=== PATIENT | female | born 1965 | race Caucasian/White ===

== ENCOUNTER 2019-12-09 07:18 | Outpatient (CLI) | payer OTHER, SELFPAY ==
--- NOTE | 2019-12-09 07:39 | MM_ITS ---
WS: [id number] BILATERAL SCREENING DIGITAL MAMMOGRAM WITH CAD HISTORY: Screening exam. COMPARISON: 02/02/2018 and 01/03/2016 Bilateral CC and MLO views submitted. Computer aided detection analyzed. Breast composition: The breasts are heterogeneously dense, which may obscure small masses. No suspici ous masses, microcalcifications or architectural distortion. Asymmetries bilaterally and in stable ov er multiple years. MM/[place] [id number] IMPRESSION: BI-RADS: 2-Benign FOLLOW UP: 1 Year Follow-up
== END 2019-12-09 07:19 | disposition home or self-care (01) ==
LOC: RADSHAW 07:20
PROVIDERS: PCP Family Medicine; Visit Provider Family Medicine
DX: Z12.31 Encounter for screening mammogram for malignant neoplasm of breast (principal)
CPT/HCPCS: 77067

== ENCOUNTER → 2019-12-12 13:37 | Outpatient (BNVA) | payer OTHER, SELFPAY | PROVIDERS: PCP Family Medicine; Visit Provider Obstetrics & Gynecology | DX: N93.9 Abnormal uterine and vaginal bleeding, unspecified (principal) | CPT/HCPCS: 76830 ==

== ENCOUNTER → 2020-01-13 09:26 | Outpatient (BNVA) | payer OTHER, SELFPAY | PROVIDERS: PCP Family Medicine; Visit Provider Obstetrics & Gynecology | DX: Z11.59 Encounter for screening for other viral diseases (principal) | CPT/HCPCS: 87635 ==

== ENCOUNTER 2020-01-19 09:04 | Day surgery (SDC) | payer OTHER, SELFPAY ==
--- NOTE | 2020-01-16 09:08 | ANES.PREANE2 ---
Pre-Anesthetic Assessment Pre-Anesthetic Assessment: Height/Weight: Height 1.68 m Preop Diagnosis: abnormal uterine bleeding Proposed Procedure: Operation Date: 01/19/20 10:30 Proposed Procedures p Hysteroscopy 81842 N93.9(Not Applicable) - Nick Copeland MD s Dilation And Curettage (D&C) 55381 R93.89(Not Applicable) - Nick Copeland MD Familial anesthetic complications: Last time she couldn't breath through her mask when she was going to sleep, she states this was because the oxygen wasn't on, but she says she couldn't inhale or exhale and she couldn't move. Suspect she wasn't deep enough Was Beta Betty taken within 24 hours: N/A Social: Social History: No alcohol and No tobacco Exam: Pre-Anes Outpt Exam: alert, oriented x 3, clear to auscultation bilaterally and regular rate & rhythm Airway: Cervical ROM: WNL MP: 2 Dentition: Full Pulmonary: Pulmonary: Asthma CV/HEM: CV/HEM: HTN GI: GI: GERD Comments: IBS Metabolic: Metabolic: Morbid obesity Comments: Pre -DM Anesthetic Plan: ASA status: 2 Anesthesia: General Risk of > 500 ml blood loss (7ml/kg in children): No PFSH Anesthesia PFSH: Medical History Asthma States that she is well controlled on albuterol as needed and denies any intubations or hospitalizations. She is managed by Dr. Nur in [place] Hypertension Reports being diagnosed with hypertension in 2013 and is currently on medication management by her PCP Dr. Aponte. She states that symptoms are well-controlled Irritable bowel syndrome She states that she has symptoms consistent with irritable bowel syndrome and is being managed by chlordiazepoxide-clidinium which helps with her symptoms as well as Metamucil and probiotics. This is being managed by primary care provider Dr. Brooke No pertinent past medical history Denies: Diabetes, seizures, DVT/PE PCP: Dr. Aponte Surgical History S/P cholecystectomy 2005, laparoscopic procedure S/P laparotomy 1992---midline infraumbilical incision. She was told that there was no cancer and then it was a benign cyst Status post surgery Anal fissure repair in 2013 Family History Sister Breast cancer diagnosed at age 48; was tested for genetic breast cancer diseases and was negative Mother Diabetes Hypertension Thyroid condition Hyperlipidemia Father Diabetes Heart disease Hypertension Grandmother Heart disease maternal Denies family history of Colon cancer Ovarian cancer DVT (deep venous thrombosis) Pulmonary embolism Uterine cancer Stroke Data Anesthesia Cardiac Studies: No Data to Display
[2020-01-16 10:49] VITALS: BMI 41.9
[2020-01-19] VITALS (7 sets, daily range): BP systolic 120–167; BP diastolic 71–92; PULSE 71–104; RESP 17–22; TEMP 36.2–37.3; O2SAT 90–97
[2020-01-19 09:28] LABS: OR HCG Qualitative Urine Negative (Negative)
[2020-01-19] MEDS: sodium chloride 0.9% 1,000 ML 30 ML IV (09:42)
[2020-01-19 09:54] LABS: Basophils % 0.5 %; Eosinophils # 0.1 10^3/uL (0.0-0.8); Eosinophils % 2.2 %; Hematocrit 45.3 % (37.0-47.0); Hemoglobin 15.2 g/dL (11.5-15.3); Lymphocytes % 30.5 %; Mean Corpuscular HGB Conc 33.6 g/dL (30.0-36.0); Mean Corpuscular Hemoglobin 30.5 pg (28.0-34.0); Mean Corpuscular Volume 90.8 fL (81-99); Mean Platelet Volume 9.9 fL (7.4-10.4); Monocytes # 0.4 10^3/uL (0.2-0.9); Monocytes % 6.7 %; Neutrophils # 3.87 10^3/uL (1.8-7.7); Neutrophils % 59.8 %; Nucleated Red Blood Cells % 0 %; Platelet Count 288 10^3/cmm (130-400); Red Blood Count 4.99 10^6/uL (4.1-5.3); Red Cell Distribution Width 11.5 % (12.1-15.1); White Blood Count 6.5 10^3/uL (4.0-10.0)
--- NOTE | 2020-01-19 10:44 | P.HPUD_ITS ---
Surgery/Procedure H&P Update DATE OF PROCEDURE: January 19, 2020 DATE H&P PERFORMED: 12/19/19 H&P UPDATE INFORMATION: I have reviewed H&P completed within last 30 days, I have examined patient prior to procedure, No changes to prior documentation and H&P is in [facility] EMR on date indicated PREOP DIAGNOSIS: Thickened endometrium-possible endometrial polyp PLANNED PROCEDURE: Operation Date: 01/19/20 10:30 Proposed Procedures p Hysteroscopy 43699 N93.9(Not Applicable) - Nick Copeland MD s Dilation And Curettage (D&C) 47396 R93.89 w/poss Myosure(Not Applicable) - Nick Copeland MD
--- NOTE | 2020-01-19 10:44 | W.PM.OPSUD ---
Surgery/Procedure H&P Update DATE OF PROCEDURE: January 19, 2020 DATE H&P PERFORMED: 12/19/19 H&P UPDATE INFORMATION: I have reviewed H&P completed within last 30 days, I have examined patient prior to procedure, No changes to prior documentation and H&P is in [facility] EMR on date indicated PREOP DIAGNOSIS: Thickened endometrium-possible endometrial polyp PLANNED PROCEDURE: Operation Date: 01/19/20 10:30 Proposed Procedures p Hysteroscopy 27802 N93.9(Not Applicable) - Nick Copeland MD s Dilation And Curettage (D&C) 88162 R93.89 w/poss Myosure(Not Applicable) - Nick Copeland MD
[2020-01-19] MEDS: silver nitrate applicator 2 EACH TOPICAL (12:23)
--- NOTE | 2020-01-19 12:31 | PM.OP ---
Operative Report Date of procedure: January 19, 2020 OPERATIVE REPORT Date of surgery: 01/19/2020 Date of dictation: 01/19/2020 Preoperative diagnosis: Thickened endometrium, abnormal uterine bleeding Postoperative diagnosis/findings: Same, 6 to 8 weeks size mid to retroverted uterus, minimal to no prolapse on exam. On hysteroscopy endocervical canal appeared normal, endometrial cavity had diffuse projectile growths some papillary in appearance. Procedure done: Hysteroscopy, polypectomy, D&C Specimens removed/disposition of specimens: Endometrial curettings sent to pathology Surgeon: Dr. Nick Hayes bacteriology research assistant: Tita Anesthesia: General endotracheal tube anesthesia Estimated blood loss: Less than 25 ml Intravenous fluids: 500 mL Urine output: 50 mL of clear urine at the end of procedure Medications: As per anesthesia records Complications: None, patient was taken to the recovery room in a stable condition. PROCEDURE: After consent was obtained patient was taken to the operating room where she is placed under laryngeal mask anesthesia without any difficulty. She was placed supine on the table in lithotomy position. Care was taken to ensure that her legs were well positioned to avoid pressure points. She was then prepped and draped in the usual sterile fashion. Exam under anesthesia was done at this time which showed a 6 to 8-week size retroverted uterus, very minimal prolapse with tenaculum. The weighted speculum and lateral vaginal wall retractors were placed in the vagina and the cervix was visualized. The cervix appeared normal and nulliparous. The cervix was dilated to a 15 Diamond dilator. This allowed placement of the Myosure hysteroscope after it was primed. Good visualization was unable to be obtained with this despite changes in the pressure setting and as a result this was removed and another operative 0 degree hysteroscope was placed. Once the hysteroscope was placed in the uterine cavity, the endocervical canal was visualized and appeared normal .the uterine cavity was visualized and diffuse thickened endometrium with a few areas of papillary growths were identified the thought to be polyp however without a smooth surface.the hysteroscope was withdrawn and sharp curetting was performed and copious amount of tissues were obtained which was sent to pathology as endometrial curettings. The hysteroscope was placed in an most of 3 tissue had been obtained. Using the hysteroscopic grasper some residual tissue was grasped and removed and sent in addition to the other endometrial tissue. The hysteroscope was withdrawn. No active bleeding was noted from the cervix. Tenaculum was removed and hemostasis was achieved at tenaculum site with silver nitrate. Good hemostasis was achieved. All instruments were removed from the vagina. Patient was cleaned well and anesthesia was reversed without any difficulty. She was taken to the recovery in a stable condition. FOLLOW UP: Follow-up in 2 weeks and 6 weeks with surgeon MEDICATION ON DISCHARGE: Colace 100 mg by mouth every 12 hours when necessary constipation, 30 tablets, no refills Ibuprofen 800 mg by mouth every 8 hours when necessary pain, 60 tablets, no refills. Continue other home medication DISPOSITION: Home in a stable condition Pre-op Diagnosis: Thickened endometrium-possible endometrial polyp
--- NOTE | 2020-01-19 12:45 | SUR.PHASEI ---
PT AWAKE ALERT WANTS TO GET UP TO BATHROOM, VSS ABD SOFT PT ON RA TRIAL, PT DOZES IF NOT DISTURBED
[2020-01-19] MEDS: ibuprofen 800 mg tablet PO (13:21)
--- NOTE | 2020-01-19 13:33 | ANE.PACU2 ---
Inpatient post-anesthesia follow up: Airway intact: Yes Vital signs: Temperature 97.8 F Pulse Rate 77 Respiratory Rate 18 Blood Pressure 140/85 Pulse Oximetry 97 Oxygen Delivery Me thod Room Air Oxygen Flow Rate 8 Fraction of Inspir ed Oxygen Hydration adequate: Yes Nausea and vomiting: No Pain level: 2 Mental status: Baseline
== END 2020-01-19 14:16 | disposition home or self-care (01) ==
PROVIDERS: PCP Family Medicine; Visit Provider Obstetrics & Gynecology
PROC: 0UJD8ZZ Inspection of Uterus and Cervix, Via Natural or Artificial Opening Endoscopic (ICD-10-PCS; CPT 58555; principal; 2020-01-19 10:30)
PROC: (CPT 58120; 2020-01-19 10:30)
DX: R93.89 Abnormal findings on diagnostic imaging of other specified body structures (principal); N93.9 Abnormal uterine and vaginal bleeding, unspecified; I10 Essential (primary) hypertension; J45.909 Unspecified asthma, uncomplicated; E66.01 Morbid (severe) obesity due to excess calories; Z68.41 Body mass index [BMI] 40.0-44.9, adult
CPT/HCPCS: 58558; 12345; 36415; 81025; 84703; 85025; 88305; J2250; J2405; J2704; J3010; J7030

== ENCOUNTER 2020-03-01 11:08 | Outpatient (CLI) | payer OTHER, SELFPAY ==
[2020-03-01] MEDS: iohexol 300 mg/mL 50 mL Btl PO (12:53)
--- NOTE | 2020-03-01 13:00 | CT_ITS ---
WS: [id number] CT scan of the chest With IV contrast, CT scan of the abdomen and pelvis with IV contrast and with oral contrast. Additional two-dimensional coronal and sagittal reconstruction was performed. 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 DLP: 2547.[address] scans at [facility] use at least one of these dose optimization techniques: automat ed exposure control; mA and/or kV adjustment per patient size (includes targeted exams where dose is matched to clinical indication); or iterative reconstruction. Findings: Chest: No nodules, masses or effusions are seen. There is a calcified granuloma in the medial aspect of the posterior portion of the right lower lobe. The heart size is normal with no pericardial effusion. No pneumonia or pneumothorax is seen. No metas tatic lesions are noted. The pulmonary arterial system and thoracic aorta demonstrate no abnormalities or dilatations. There is no axillary or significant mediastinal adenopathy. The bony thorax shows no metastatic lesio ns. There is minimal osteoarthritic spurring of the thoracic vertebral bodies. Abdomen/pelvis: The liver, spleen, adrenal glands and pancreas are normal. There are clips in the gallbladder fossa from a cholecystectomy. The kidneys show equal bilateral contrast excretion with a 3.0 cm cyst of the right kidney. No hydron ephrosis or renal calculi are seen.. The abdominal aorta is normal in size. No appendicitis or diverticulitis is seen. Oral contrast is in the stomach and small bowel and there is no bowel dilatation. No abscess, adenopathy, ascites, mass, obstruction or free air is seen. The bladder is unremarkable. The uterus is unremarkable. No inguinal hernia is seen. The bones of the lower thorax, lumbar spine, pelvis, and hips show only minimal narrowing at the L5-S 1 disc level. No bony metastatic lesions are seen. CT/CT chest abd pel w con* Impression: 1. Negative for acute cardiopulmonary disease. 2. Negative for acute intra-abdominal or pelvic abnormalities.
[2020-03-01] MEDS: iohexol 300 mg/mL 100 mL Btl IV (13:14)
== END 2020-03-01 11:09 | disposition home or self-care (01) ==
LOC: RADWPI 11:13
PROVIDERS: PCP Family Medicine; Visit Provider Obstetrics & Gynecology
DX: N85.02 Endometrial intraepithelial neoplasia [EIN] (principal)
CPT/HCPCS: 71260; 74177; Q9967

== ENCOUNTER 2020-03-01 14:07 | Outpatient (CLI) | payer OTHER, SELFPAY | END 2020-03-01 14:08 | disposition home or self-care (01) | LOC: LAB 14:12 | PROVIDERS: PCP Family Medicine; Visit Provider Obstetrics & Gynecology | DX: N85.02 Endometrial intraepithelial neoplasia [EIN] (principal) | CPT/HCPCS: 36415; 86304 ==

== ENCOUNTER 2021-01-18 07:38 | Outpatient (CLI) | payer OTHER, SELFPAY ==
--- NOTE | 2021-01-18 07:42 | MM_ITS ---
WS: [id number] Bilateral screening digital mammogram, 01/18/2021 Clinical Data: SCREENING Comparison: 12/09/2019, 02/02/2018, 01/03/2016, 11/10/2013, 02/25/2012, 08/29/2011, 08/01/2011, 09/08/2008 . Findings: The breast parenchymal pattern shows heterogeneous density No spiculated masses or clustered calcific ations are seen. There are no secondary signs of carcinoma. There are a large number of moles on both breasts. There are small lymph nodes in both axilla. MM/[place] [id number] Impression: 1. Negative bilateral mammogram unchanged. 2. Recommend annual screening mammograms. BIRADS: 1-Negative FOLLOW UP: 1 Year Follow-up The CAD field checker was used.
== END 2021-01-18 07:39 | disposition home or self-care (01) ==
LOC: RADSHAW 07:41
PROVIDERS: PCP Family Medicine; Visit Provider Family Medicine
DX: Z12.31 Encounter for screening mammogram for malignant neoplasm of breast (principal)
CPT/HCPCS: 77067

== ENCOUNTER 2022-01-27 07:14 | Outpatient (CLI) | payer OTHER, SELFPAY ==
--- NOTE | 2022-01-27 07:23 | MM_ITS ---
WS: [id number] VIEWS: MLO and CC views both breasts. 3D digital tomosynthesis is also included in this exam. Comparison made with prior exam of 11/10/2013, 01/03/2016, 02/02/2018, 12/09/2019, 01/18/2021.. Findings: Stable appearing nodular densities in both breasts. Heterogeneously dense MM/[place] [id number] Impression: BI-RADS: 2-Benign FOLLOW-UP: 1 Year Follow-up This mammogram was also analyzed by the Computer Aided Detection System R2 Imag [employer] Training [employer] Development Specialist.
== END 2022-01-27 07:15 | disposition home or self-care (01) ==
LOC: RAD 07:15
PROVIDERS: PCP Family Medicine; Visit Provider Family Medicine
DX: Z12.31 Encounter for screening mammogram for malignant neoplasm of breast (principal)
CPT/HCPCS: 77063; 77067

== ENCOUNTER 2023-01-30 07:30 | Outpatient (CLI) | payer OTHER, SELFPAY ==
--- NOTE | 2023-01-30 07:49 | MM_ITS ---
WS: [id number] SCREENING DIGITAL TOMOSYNTHESIS MAMMOGRAM WITH CAD HISTORY: SCREEN COMPARISON: 01/27/2022 and 01/18/2021 Bilateral CC and MLO with tomosynthesis views submitted. Synthetic mammography reviewed. Computer aid ed detection analyzed. Breast composition: The breasts are heterogeneously dense, which may obscure small masses. No suspici ous masses, microcalcifications or architectural distortion. Benign calcifications in each breast. IMPRESSION: MM/[place] [id number] BI-RADS: 2-Benign FOLLOW UP: 1 Year Follow-up
== END 2023-01-30 07:31 | disposition home or self-care (01) ==
LOC: RAD 07:30
PROVIDERS: PCP Family Medicine; Visit Provider Family Medicine
DX: Z12.31 Encounter for screening mammogram for malignant neoplasm of breast (principal)
CPT/HCPCS: 77063; 77067

== ENCOUNTER 2024-02-01 07:22 | Outpatient (CLI) | payer OTHER, SELFPAY ==
--- NOTE | 2024-02-01 07:28 | MM_ITS ---
WS: [id number] BILATERAL SCREENING DIGITAL TOMOSYNTHESIS MAMMOGRAM WITH CAD HISTORY: SCREENING COMPARISON: 01/30/2023, 01/27/2022, 12/09/2019 Bilateral CC and MLO views with tomosynthesis and synthetic mammography submitted. Computer aided det ection analyzed. Breast composition: The breasts are heterogeneously dense, which may obscure small masses. No suspici ous masses, microcalcifications or architectural distortion. Scattered round punctate calcifications within each breast. MM/MM scr BI tomosynthesis [id number] IMPRESSION: BI-RADS: 2 - Benign FOLLOW UP: 1 Year Follow-up
== END 2024-02-01 07:23 | disposition home or self-care (01) ==
PROVIDERS: PCP Family Medicine; Visit Provider Family Medicine
DX: Z12.31 Encounter for screening mammogram for malignant neoplasm of breast (principal); R92.333 Mammographic heterogeneous density, bilateral breasts; R92.1 Mammographic calcification found on diagnostic imaging of breast
CPT/HCPCS: 77063; 77067

== ENCOUNTER 2024-12-15 08:08 | Outpatient (CLI) | payer BC, SELFPAY ==
--- NOTE | 2024-12-15 08:13 | CTR_ITS ---
PROCEDURE INFORMATION: Exam: CT Neck With Contrast Exam date and time: 12/15/2024 8:35 AM Age: 59 years old Clinical indication: Mass, lump, or swelling in neck; Prior surgery; Surgery date: 6+ months; Surgery type: Benign tumor removed from left clavicle area; Lump on right side of neck/painful x 1 month ago, 1 week ago lump went away. ; Additional info: Mass of R side of neck TECHNIQUE: Imaging protocol: Computed tomography of the neck with contrast. Radiation optimization: All CT scans at this facility use at least one of these dose optimization techniques: automated exposure control; mA and/or kV adjustment per patient size (includes targeted exams where dose is matched to clinical indication); or iterative reconstruction. Contrast material: OMNI 350; Contrast volume: 100 ml; Contrast route: INTRAVENOUS (IV); COMPARISON: No prior CT neck for comparison. RADIATION DOSE METRICS: Total DLP (mGy-cm): 216.37 FINDINGS: No skin marker indicating specific region of clinical concern. Symmetric appearance of the parotid and submandibular glands. Thyroid gland is nonenlarged. No cervical lymphadenopathy identified. Parapharyngeal fat planes and fat planes in the floor of mouth are preserved. No suspicious right neck mass identified. Imaged portions of the paranasal sinuses are well-aerated. Bilateral middle ear cavities and mastoid sinuses are well-aerated. No acute osseous abnormality detected. Chronic multilevel cervical degenerative disc disease is present. Major vascular structures in the neck are unremarkable. Left AC joint is not within the field of view. Chronic DJD noted at the right AC joint. CT/CT neck w con* [id number] IMPRESSION: No obvious acute abnormality or suspicious neck mass detected.
[2024-12-15] MEDS: iohexol 350 mg/mL 500 mL Btl (per mL) IV (08:46)
== END 2024-12-15 08:09 | disposition home or self-care (01) ==
LOC: RAD 08:09
PROVIDERS: PCP Family Medicine; Visit Provider Family Medicine
DX: R22.1 Localized swelling, mass and lump, neck (principal); M50.30 Other cervical disc degeneration, unspecified cervical region
CPT/HCPCS: 70491

== ENCOUNTER 2025-02-01 07:30 | Outpatient (CLI) | payer BC, SELFPAY ==
--- NOTE | 2025-02-01 07:33 | MM_ITS ---
WS: [id number] BILATERAL SCREENING DIGITAL TOMOSYNTHESIS MAMMOGRAM WITH CAD HISTORY: SCREENING COMPARISON: 02/01/2024, 01/30/2023, 01/27/2022 Bilateral CC and MLO views with tomosynthesis and synthetic mammography submitted. Computer aided detection analyzed. Breast composition: The breasts are extremely dense, which lowers the sensitivity of mammography. No suspicious masses, microcalcifications or architectural distortion. Densities and calcifications within each breast remain stable. No areas of distortion or new mass identified. MM/MM scr tomosynthesis [id number] IMPRESSION: BI-RADS: 2 - Benign FOLLOW UP: 1 Year Follow-up
== END 2025-02-01 07:31 | disposition home or self-care (01) ==
LOC: RAD 07:31
PROVIDERS: PCP Family Medicine; Visit Provider Family Medicine
DX: Z12.31 Encounter for screening mammogram for malignant neoplasm of breast (principal); R92.343 Mammographic extreme density, bilateral breasts; R92.1 Mammographic calcification found on diagnostic imaging of breast
CPT/HCPCS: 77063; 77067